=== PATIENT | female | born 1990 | race Caucasian/White ===

== ENCOUNTER 2018-01-15 12:38 | Inpatient (IN) | payer OTHER ==
[2018-01-15] MEDS ORDERED: CARBOPROST 250 MCG INJ IM (14:30)
[2018-01-15] MEDS ORDERED: MISOPROSTOL 200 MCG TAB PR (14:30)
[2018-01-15] MEDS ORDERED: IBUPROFEN 600 MG TAB PO (14:30)
[2018-01-15] MEDS ORDERED: LIDOCAINE 1% (MPF) 30 ML INJ INJ (14:30)
[2018-01-15] MEDS ORDERED: METHYLERGONOVINE 0.2 MG INJ IM (14:30)
[2018-01-15] MEDS ORDERED: OXYTOCIN 30 UNITS/LR 500 ML IV ×2 (14:30)
[2018-01-15 14:58] LABS: ADD MAN DIFF? NO
[2018-01-15 15:00] LABS: BASOPHILS % 0.3 % (0.0-2.0); EOSINOPHILS # 0.1 10^3/ul (0.0-0.5); EOSINOPHILS % 0.4 % (0.0-7.0); HEMATOCRIT 36.1 % (37.0-47.0); LYMPHOCYTES # 2.3 10^3/ul (0.8-2.9); LYMPHOCYTES % 19.2 % (15.0-51.0); MEAN CORPUSCULAR HEMOGLOBIN 30.9 pg (29.0-33.0); MEAN CORPUSCULAR HGB CONC 33.2 g/dl (32.0-37.0); MEAN PLATELET VOLUME 10.4 fl (7.4-10.4); MONOCYTE # 0.6 10^3/ul (0.3-0.9); MONOCYTES % 5.1 % (0.0-11.0); NEUTROPHILS % 74.5 % (39.0-77.0); PLATELET COUNT 257 10^3/UL (140-415); RED BLOOD COUNT 3.88 10^6/ul (4.20-5.40); RED CELL DISTRIBUTION WIDTH 15.3 % (11.5-14.5)
[2018-01-15] MEDS: LACTATED RINGER'S 1,000 ML IV ×2 (15:11→22:31)
[2018-01-15] MEDS: AMPICILLIN 2 GM/NS (PMX) 100 ML IV (15:12)
[2018-01-15] MEDS: MISOPROSTOL 25 MCG CAPSULE PO ×3 (15:16→23:33)
[2018-01-15 15:20] LABS: ANION GAP 15 (8-16)
[2018-01-15 15:21] LABS: INR 0.98; PROTIME 13.1 Sec (11.9-14.9)
[2018-01-15 15:22] LABS: PARTIAL THROMBOPLASTIN TIME 30.9 Sec (25.0-35.0)
[2018-01-15 15:27] LABS: ALANINE AMINOTRANSFERASE 16 IU/L (13-69); ALBUMIN 3.4 g/dl (3.3-4.9); ALKALINE PHOSPHATASE 192 IU/L (42-121); ASPARTATE AMINO TRANSFERASE 18 IU/L (15-46); BILIRUBIN,INDIRECT 0.1 mg/dl (0-1.1); BILIRUBIN,TOTAL 0.1 mg/dl (0.2-1.3); BLOOD UREA NITROGEN 11 mg/dl (7-20); CALCIUM 9.1 mg/dl (8.4-10.2); CARBON DIOXIDE 20 mmol/L (21-31); CHLORIDE 108 mmol/L (97-110); CREATININE 0.67 mg/dl (0.44-1.00); GLUCOSE 111 mg/dl (70-220); LACTATE DEHYDROGENASE 432 IU/L (313-618); PHOSPHORUS 5.2 mg/dl (2.5-4.9); POTASSIUM 3.8 mmol/L (3.5-5.1); SODIUM 139 mmol/L (135-144); TOTAL PROTEIN 6.5 g/dl (6.1-8.1)
[2018-01-15 16:06] LABS: ADD UMIC YES; UR ASCORBIC ACID NEGATIVE (NEGATIVE); UR BILIRUBIN (Dip) NEGATIVE (NEGATIVE); UR BLOOD (Dip) NEGATIVE (NEGATIVE); UR CLARITY SLIGHTLY CLOUDY (CLEAR); UR COLOR YELLOW (YELLOW); UR GLUCOSE (Dip) NEGATIVE (NEGATIVE); UR KETONES (Dip) NEGATIVE (NEGATIVE); UR LEUKOCYTE ESTERASE (Dip) 2+ Leu/ul (NEGATIVE); UR NITRITE (Dip) NEGATIVE (NEGATIVE); UR RBC 2 /HPF (0-5); UR SPECIFIC GRAVITY (Dip) 1.008 (1.003-1.030); UR SQUAMOUS EPITHELIAL CELL FEW /HPF (FEW); UR TOTAL PROTEIN (Dip) NEGATIVE (NEGATIVE); UR UROBILINOGEN (Dip) NEGATIVE (NEGATIVE); UR WBC 2 /HPF (0-5)
[2018-01-15 16:17] LABS: FIBRIN SPLIT PRODUCT <10 ug/ml (<10)
[2018-01-15 16:39] LABS: URIC ACID 5.3 mg/dl (3.1-7.9)
[2018-01-15] MEDS: AMPICILLIN 1 GM/NS (PMX) 50 ML IV ×2 (19:01→23:33)
[2018-01-15 19:37] LABS: HEPATITIS B SURFACE ANTIGEN NEGATIVE (NEGATIVE)
[2018-01-15] MEDS ORDERED: LACTATED RINGER'S 1,000 ML IV (21:39)
[2018-01-15] MEDS ORDERED: OXYCODONE/ACETAMINOPHEN (5/325) TAB PO (22:00)
[2018-01-16] MEDS: AMPICILLIN 1 GM/NS (PMX) 50 ML IV ×6 (03:39→22:30)
[2018-01-16] MEDS: BUTORPHANOL 2 MG INJ IV (03:46)
[2018-01-16] MEDS: LACTATED RINGER'S 1,000 ML IV ×3 (07:00→20:45)
[2018-01-16] MEDS: OXYTOCIN 30 UNITS/LR 500 ML IV (10:23)
[2018-01-16] MEDS ORDERED: morphine SULFATE/PF (10 MG/10 ML) INJ (20:21)
[2018-01-16] MEDS ORDERED: PHENYLephrine (100 MCG/ML) 5ML SYG (20:21)
[2018-01-16] MEDS ORDERED: METOCLOPRAMIDE 10 MG INJ (20:21)
[2018-01-16] MEDS ORDERED: KETOROLAC 30 MG INJ (20:21)
[2018-01-16] MEDS ORDERED: BUPIVACAINE 0.75%/DEXT (SPINAL) 2 ML INJ (20:21)
[2018-01-16] MEDS ORDERED: DEXAMETHASONE 4 MG/ML 1 ML INJ (20:21)
[2018-01-16] MEDS ORDERED: OXYTOCIN 10 UNIT INJ (20:21)
[2018-01-16] MEDS: ONDANSETRON 4 MG INJ IV ×2 (20:30→20:34)
[2018-01-16] MEDS ORDERED: MISOPROSTOL 200 MCG TAB PR (20:30)
[2018-01-16] MEDS ORDERED: OXYTOCIN 30 UNITS/LR 500 ML IV ×2 (20:30)
[2018-01-16] MEDS ORDERED: METHYLERGONOVINE 0.2 MG INJ IM (20:30)
[2018-01-16] MEDS: CITRIC ACID/SODIUM CITRATE 15 ML CUP PO ×2 (20:30→20:34)
[2018-01-16] MEDS ORDERED: CARBOPROST 250 MCG INJ IM (20:30)
[2018-01-16 21:13] LABS: RAPID PLASMA REAGIN NONREACTIVE (NR)
[2018-01-16] MEDS ORDERED: MEPERIDINE 100 MG INJ (22:18)
[2018-01-16] MEDS: CEFAZOLIN 2 GM/50 ML (PMX) 50 ML IV (22:36)
[2018-01-17] MEDS ORDERED: NALBUPHINE HCL (10 MG/1 ML) INJ IV
[2018-01-17] MEDS ORDERED: ACETAMINOPHEN 500 MG TAB PO
[2018-01-17] MEDS ORDERED: HYDROCODONE/APAP (5/325) TAB PO
[2018-01-17] MEDS: OXYTOCIN 30 UNITS/LR 500 ML IV ×2 (00:58→06:42)
[2018-01-17] MEDS ORDERED: DEXTROSE 5%-LR 1,000 ML IV (01:10)
[2018-01-17] MEDS ORDERED: METHYLERGONOVINE 0.2 MG TAB PO (01:30)
[2018-01-17] MEDS ORDERED: OXYTOCIN 30 UNITS/LR 500 ML IV (01:30)
[2018-01-17] MEDS ORDERED: CARBOPROST 250 MCG INJ IM (01:30)
[2018-01-17] MEDS ORDERED: MISOPROSTOL 200 MCG TAB PR (01:30)
[2018-01-17] MEDS ORDERED: METHYLERGONOVINE 0.2 MG INJ IM (01:30)
[2018-01-17] MEDS ORDERED: ZOLPIDEM 5 MG TAB PO (03:00)
[2018-01-17] MEDS ORDERED: HYDROmorphONE 0.5 MG/0.5 ML SYG IV ×4 (03:00)
[2018-01-17] MEDS ORDERED: morphine 2 MG INJ IV ×2 (03:00)
[2018-01-17] MEDS ORDERED: ONDANSETRON 4 MG INJ IV ×2 (03:00)
[2018-01-17] MEDS ORDERED: DIPHENHYDRAMINE 50 MG INJ IV ×2 (03:00)
[2018-01-17] MEDS ORDERED: KETOROLAC 30 MG INJ IV ×2 (03:00)
[2018-01-17] MEDS ORDERED: NALOXONE (0.4 MG/ML) INJ IV ×2 (03:00)
[2018-01-17] MEDS: morphine 2 MG INJ IV ×4 (06:43→21:14)
[2018-01-17] MEDS: SENNA/DOCUSATE NA (8.6MG/50MG) TAB PO ×2 (09:07→21:13)
[2018-01-17 14:37] LABS: ADD MAN DIFF? NO
[2018-01-17 14:39] LABS: WHITE BLOOD COUNT 14.8 10^3/ul (4.8-10.8)
[2018-01-17 14:39] LABS: BASOPHILS % 0.1 % (0.0-2.0); EOSINOPHILS % 0.1 % (0.0-7.0); HEMATOCRIT 27.1 % (37.0-47.0); HEMOGLOBIN 8.9 g/dl (12.0-16.0); LYMPHOCYTES # 2.3 10^3/ul (0.8-2.9); LYMPHOCYTES % 15.3 % (15.0-51.0); MEAN CORPUSCULAR HEMOGLOBIN 30.7 pg (29.0-33.0); MEAN CORPUSCULAR HGB CONC 32.8 g/dl (32.0-37.0); MEAN CORPUSCULAR VOLUME 93.4 fl (82.0-101.0); MEAN PLATELET VOLUME 10.4 fl (7.4-10.4); MONOCYTE # 0.8 10^3/ul (0.3-0.9); MONOCYTES % 5.6 % (0.0-11.0); NEUTROPHIL # 11.6 10^3/ul (1.6-7.5); NEUTROPHILS % 78.4 % (39.0-77.0); PLATELET COUNT 214 10^3/UL (140-415); RED CELL DISTRIBUTION WIDTH 15.4 % (11.5-14.5)
[2018-01-17] MEDS: OXYCODONE/ACETAMINOPHEN (5/325) TAB PO (22:20)
[2018-01-18] MEDS: IBUPROFEN 800 MG TAB PO ×4 (01:38→23:38)
[2018-01-18] MEDS: LANOLIN 7 GM TUBE TOP (02:46)
[2018-01-18] MEDS: OXYCODONE/ACETAMINOPHEN (5/325) TAB PO ×5 (06:10→23:39)
[2018-01-18] MEDS: SENNA/DOCUSATE NA (8.6MG/50MG) TAB PO ×2 (09:46→21:12)
[2018-01-19] MEDS: SENNA/DOCUSATE NA (8.6MG/50MG) TAB PO (10:07)
[2018-01-19] MEDS: IBUPROFEN 800 MG TAB PO ×2 (10:07→13:51)
[2018-01-19] MEDS: OXYCODONE/ACETAMINOPHEN (5/325) TAB PO ×3 (10:07→13:52)
[2018-01-19] MEDS: DIPHTH/TET/ACEL PERTUSS (ADULT) 0.5 ML VIAL IM* (11:40)
[2018-01-20] MEDS ORDERED: DIPHTH/TET/ACEL PERTUSS (ADULT) 0.5 ML VIAL IM* (09:00)
[2018-01-20] MEDS ORDERED: MEASLES,MUMPS,RUBELLA VACCINE INJ SC* (09:00)
== END 2018-01-19 15:05 | disposition home or self-care (01) | DRG 766 ==
LOC: PP1 01-17 01:27 → L-D 12:38
PROC: 3E0P7VZ Introduction of Hormone into Female Reproductive, Via Natural or Artificial Opening (ICD-10-PCS; 2018-01-15)
PROC: 10D00Z1 Extraction of Products of Conception, Low, Open Approach (ICD-10-PCS; principal; 2018-01-17)
PROC: 3E0234Z Introduction of Serum, Toxoid and Vaccine into Muscle, Percutaneous Approach (ICD-10-PCS; 2018-01-19)
DX: O13.4 Gestational [pregnancy-induced] hypertension without significant proteinuria, complicating childbirth (principal); O36.63X0 Maternal care for excessive fetal growth, third trimester, not applicable or unspecified; Z37.0 Single live birth; Z3A.39 39 weeks gestation of pregnancy; Z23 Encounter for immunization
CPT/HCPCS: 76815; 80069; 80076; 81001; 83615; 84560; 85025; 85362; 85384; 85610; 85730; 86592; 86850; 86900; 86901; 87340; 90715; 94760; 99464

== ENCOUNTER 2018-01-22 17:30 | Emergency (ER) | payer OTHER ==
[2018-01-22 20:55] LABS: ADD MAN DIFF? NO
[2018-01-22] MEDS: morphine 4 MG/ML VIAL IV (20:57)
[2018-01-22] MEDS: SOD CHLORIDE 0.9% 500 ML IV (20:57)
[2018-01-22] MEDS: ONDANSETRON 4 MG INJ IV (20:57)
[2018-01-22 21:07] LABS: BASOPHILS % 0.4 % (0.0-2.0); EOSINOPHILS # 0.4 10^3/ul (0.0-0.5); EOSINOPHILS % 3.9 % (0.0-7.0); HEMATOCRIT 28.5 % (37.0-47.0); HEMOGLOBIN 9.1 g/dl (12.0-16.0); LYMPHOCYTES # 2.2 10^3/ul (0.8-2.9); LYMPHOCYTES % 22.4 % (15.0-51.0); MEAN CORPUSCULAR HEMOGLOBIN 30.8 pg (29.0-33.0); MEAN CORPUSCULAR HGB CONC 31.9 g/dl (32.0-37.0); MEAN CORPUSCULAR VOLUME 96.6 fl (82.0-101.0); MEAN PLATELET VOLUME 9.9 fl (7.4-10.4); MONOCYTE # 0.5 10^3/ul (0.3-0.9); NEUTROPHIL # 6.6 10^3/ul (1.6-7.5); NEUTROPHILS % 67.7 % (39.0-77.0); PLATELET COUNT 312 10^3/UL (140-415); RED BLOOD COUNT 2.95 10^6/ul (4.20-5.40); RED CELL DISTRIBUTION WIDTH 15.9 % (11.5-14.5)
[2018-01-22 21:07] LABS: WHITE BLOOD COUNT 9.7 10^3/ul (4.8-10.8)
[2018-01-22 21:17] LABS: ANION GAP 13 (8-16); BLOOD UREA NITROGEN 12 mg/dl (7-20); CALCIUM 9.6 mg/dl (8.4-10.2); CARBON DIOXIDE 26 mmol/L (21-31); CHLORIDE 106 mmol/L (97-110); CREATININE 0.77 mg/dl (0.44-1.00); GLUCOSE 99 mg/dl (70-220); POTASSIUM 4.2 mmol/L (3.5-5.1); SODIUM 141 mmol/L (135-144)
[2018-01-22] MEDS ORDERED: SOD CHLORIDE 0.9% 100 ML (21:35)
[2018-01-22] MEDS ORDERED: IOHEXOL 300MG/ML 150 ML BTL (21:35)
[2018-01-22 22:26] LABS: ADD UMIC YES; UR ASCORBIC ACID NEGATIVE (NEGATIVE); UR BACTERIA FEW /HPF (NONE SEEN); UR BILIRUBIN (Dip) NEGATIVE (NEGATIVE); UR BLOOD (Dip) 3+ mg/dL (NEGATIVE); UR CLARITY CLOUDY (CLEAR); UR COLOR YELLOW (YELLOW); UR GLUCOSE (Dip) NEGATIVE (NEGATIVE); UR KETONES (Dip) NEGATIVE (NEGATIVE); UR LEUKOCYTE ESTERASE (Dip) 2+ Leu/ul (NEGATIVE); UR MUCUS FEW /HPF (NONE SEEN); UR NITRITE (Dip) NEGATIVE (NEGATIVE); UR RBC 14 /HPF (0-5); UR SPECIFIC GRAVITY (Dip) 1.009 (1.003-1.030); UR SQUAMOUS EPITHELIAL CELL MODERATE /HPF (FEW); UR TOTAL PROTEIN (Dip) NEGATIVE (NEGATIVE); UR UROBILINOGEN (Dip) NEGATIVE (NEGATIVE); UR WBC 17 /HPF (0-5)
== END 2018-01-22 23:30 | disposition home or self-care (01) ==
LOC: E/R 17:30
DX: O90.89 Other complications of the puerperium, not elsewhere classified (principal); R10.32 Left lower quadrant pain; Z91.040 Latex allergy status
CPT/HCPCS: 36415; 74177; 80048; 81001; 85025; 87086; 96374; 96375; 99285-25

== ENCOUNTER 2018-02-02 08:47 | Emergency (ER) | payer OTHER | END 2018-02-02 10:47 | disposition home or self-care (01) | LOC: E/R 08:47 | DX: O90.0 Disruption of cesarean delivery wound (principal); Z91.040 Latex allergy status | CPT/HCPCS: 12020; 99282-25 ==